=== PATIENT | male | born 1935 | race Caucasian/White ===

== ENCOUNTER 2018-04-29 07:54 | Emergency (ER) | payer MEDICARE, OTHER ==
[~2018-04-29] VITALS: Ht 172.7 cm; Wt 78.3 kg
[~2018-04-29 07:54] MED LIST: BENA10TA74 PO; DEXL60CA3 PO; HYDR-3965 PO
[2018-04-29] MEDS ORDERED: normal saline 1000ML IV soln IVB ONE ×2 (08:05→09:40)
[2018-04-29] MEDS ORDERED: BARIUM SULFATE 340 ML SUSP.RECON***PROCEDURE AREA ONLY**DONT ENTER PO ONE (08:42)
[2018-04-29 08:44] LABS: BASOPHILS % (AUTO) 0.5 % (0-1); EOSINOPHILS # (AUTO) 0.6 X10'3 (0-0.9); EOSINOPHILS % (AUTO) 6.4 % (0-6); HEMATOCRIT 44.4 % (42.0-52.0); HEMOGLOBIN 14.4 g/dl (14.0-17.9); LYMPHOCYTES # (AUTO) 2.1 X10'3 (1.1-4.8); LYMPHOCYTES % (AUTO) 23.6 % (21-51); MEAN CORPUSCULAR HEMOGLOBIN 31.5 PG (27.0-31.0); MEAN CORPUSCULAR HGB CONC 32.5 g/dL (33.0-36.5); MEAN CORPUSCULAR VOLUME 96.8 FL (78-98); MEAN PLATELET VOLUME 7.7 FL (7.4-10.4); MONOCYTES # (AUTO) 0.8 X10'3 (0-0.9); MONOCYTES % (AUTO) 8.3 % (2-12); NEUTROPHILS # (AUTO) 5.6 X10'3 (1.8-7.7); NEUTROPHILS % (AUTO) 61.2 % (42-75); PLATELET COUNT 328 X10'3 (140-440); RED BLOOD COUNT 4.59 X10'6 (4.70-6.10); RED CELL DISTRIBUTION WIDTH 14.3 % (11.5-14.5); WHITE BLOOD COUNT 9.1 X10'3 (4.5-11.0)
[2018-04-29] MEDS ORDERED: SIMETHICONE/SOD BICARB/CIT AC PACKET PO ONE (08:47)
[2018-04-29 08:54] LABS: ALANINE AMINOTRANSFERASE 21 U/L (12-78); ALBUMIN 3.9 G/DL (3.4-5.0); ALBUMIN/GLOBULIN RATIO 1.1 (1.1-1.5); ALKALINE PHOSPHATASE 78 IU/L (46-116); ANION GAP 10 (8-16); ASPARTATE AMINO TRANSFERASE 19 U/L (10-37); BILIRUBIN,TOTAL 0.6 MG/DL (0.1-1.0); BLOOD UREA NITROGEN 21 MG/DL (7-18); BUN/CREATININE RATIO 12.1 (5.4-32.0); CALCIUM 8.9 MG/DL (8.5-10.1); CHLORIDE 106 MMOL/L (99-107); CREATININE 1.74 MG/DL (0.60-1.10); GLUCOSE 103 MG/DL (70-104); POTASSIUM 4.7 MMOL/L (3.5-5.1); SODIUM 140 MMOL/L (135-145); TOTAL CARBON DIOXIDE 24.3 MMOL/L (24-32); TOTAL PROTEIN 7.3 G/DL (6.4-8.2); eGFR 38 ML/MIN
[2018-04-29 10:55] VITALS: BP 217/91
[2018-04-29] MEDS ORDERED: fentaNYL/PF 50MCG/1 ML 2ML syringe ONE (11:02)
[2018-04-29] MEDS ORDERED: LIDOcaine Viscous 15ml cup ONE (11:02)
[2018-04-29] MEDS ORDERED: MIDAZolam 5mg/5ml vial ONE (11:02)
[2018-04-29 11:33] VITALS: BP 161/98
[2018-04-29 11:43] VITALS: BP 183/87
[2018-04-29 11:53] VITALS: BP 185/89
[2018-04-29 13:03] VITALS: BP 171/96
== END 2018-04-29 13:05 | disposition home or self-care (01) ==
LOC: ER 07:55
DX: K22.2 Esophageal obstruction (principal); Z79.899 Other long term (current) drug therapy
CPT/HCPCS: 36415; 43239; 43249; 74220; 80053; 85025; 99152; 99153; 99285; J2250; J3010; J7030; 88305; 88342; A4620; C1726

== ENCOUNTER 2018-10-07 08:10 | Emergency (ER) | payer MEDICARE, OTHER ==
[~2018-10-07] VITALS: Ht 172.7 cm; Wt 77.3 kg
[2018-10-07] MEDS ORDERED: ipratropium/albuterol 3ml nebule NEB ONE (08:20)
[2018-10-07 08:47] LABS: BASOPHILS # (AUTO) 0.1 X10'3 (0-0.2); BASOPHILS % (AUTO) 0.8 % (0-1); EOSINOPHILS # (AUTO) 0.8 X10'3 (0-0.9); EOSINOPHILS % (AUTO) 8.8 % (0-6); HEMATOCRIT 43.9 % (42.0-52.0); HEMOGLOBIN 14.6 g/dl (14.0-17.9); LYMPHOCYTES # (AUTO) 2.3 X10'3 (1.1-4.8); LYMPHOCYTES % (AUTO) 24.2 % (21-51); MEAN CORPUSCULAR HEMOGLOBIN 31.5 PG (27.0-31.0); MEAN CORPUSCULAR HGB CONC 33.3 g/dL (33.0-36.5); MEAN CORPUSCULAR VOLUME 94.6 FL (78-98); MEAN PLATELET VOLUME 7.5 FL (7.4-10.4); MONOCYTES # (AUTO) 0.7 X10'3 (0-0.9); MONOCYTES % (AUTO) 7.3 % (2-12); NEUTROPHILS # (AUTO) 5.5 X10'3 (1.8-7.7); NEUTROPHILS % (AUTO) 58.9 % (42-75); PLATELET COUNT 307 X10'3 (140-440); RED BLOOD COUNT 4.64 X10'6 (4.70-6.10); RED CELL DISTRIBUTION WIDTH 14.5 % (11.5-14.5); WHITE BLOOD COUNT 9.4 X10'3 (4.5-11.0)
[2018-10-07 09:03] LABS: ALANINE AMINOTRANSFERASE 22 U/L (12-78); ALBUMIN 3.7 G/DL (3.4-5.0); ALBUMIN/GLOBULIN RATIO 1.1 (1.1-1.5); ALKALINE PHOSPHATASE 90 IU/L (46-116); ANION GAP 8 (8-16); ASPARTATE AMINO TRANSFERASE 11 U/L (10-37); BILIRUBIN,TOTAL 0.3 MG/DL (0.1-1.0); BLOOD UREA NITROGEN 26 MG/DL (7-18); BUN/CREATININE RATIO 12.7 (5.4-32.0); CALCIUM 9.1 MG/DL (8.5-10.1); CHLORIDE 109 MMOL/L (99-107); CREATININE 2.04 MG/DL (0.60-1.10); GLUCOSE 131 MG/DL (70-104); POTASSIUM 4.3 MMOL/L (3.5-5.1); SODIUM 142 MMOL/L (135-145); TOTAL CARBON DIOXIDE 25.2 MMOL/L (24-32); TOTAL PROTEIN 7.2 G/DL (6.4-8.2); eGFR 31 ML/MIN
[2018-10-07] MEDS ORDERED: PRED10TA23 PO (09:17)
[2018-10-07] MEDS ORDERED: FLUT1DIS4 INH (09:17)
[2018-10-07] MEDS ORDERED: ALBU18HF2 INH (09:17)
[2018-10-07] MEDS ORDERED: AMOX-419 PO (09:17)
[2018-10-07] MEDS ORDERED: methylPREDNISolone sod succ 125mg/2ml vial IM ONE (09:20)
[2018-10-07 10:36] VITALS: BP 172/75
== END 2018-10-07 10:37 | disposition home or self-care (01) ==
LOC: ER 08:11
DX: J98.01 Acute bronchospasm (principal); F17.200 Nicotine dependence, unspecified, uncomplicated; N18.9 Chronic kidney disease, unspecified; Z90.49 Acquired absence of other specified parts of digestive tract; Z95.0 Presence of cardiac pacemaker; Z79.2 Long term (current) use of antibiotics; Z79.899 Other long term (current) drug therapy
CPT/HCPCS: 36415; 71046; 80053; 83880; 84484; 85025; 93005; 94640; 94760; 96372; 99284; J2930

== ENCOUNTER 2018-10-24 08:33 | Emergency (ER) | payer MEDICARE, OTHER ==
[~2018-10-24] VITALS: Ht 172.7 cm; Wt 77.3 kg
[~2018-10-24 08:33] MED LIST changes: +ALBU18HF2 INH; +FLUT1DIS4 INH; +PRED10TA23 PO
--- NOTE | 2018-10-24 09:16 | NUR ---
Spoke to BROOKE Oreilly regarding bladder scan results and pt's inability to urinate. He feels that striat catheter is necessary at this time.
[2018-10-24 09:22] LABS: ALANINE AMINOTRANSFERASE 38 U/L (12-78); ALBUMIN 3.5 G/DL (3.4-5.0); ALBUMIN/GLOBULIN RATIO 1.1 (1.1-1.5); ALKALINE PHOSPHATASE 69 IU/L (46-116); ANION GAP 7 (8-16); ASPARTATE AMINO TRANSFERASE 15 U/L (10-37); BILIRUBIN,TOTAL 0.6 MG/DL (0.1-1.0); BLOOD UREA NITROGEN 28 MG/DL (7-18); BUN/CREATININE RATIO 13.7 (5.4-32.0); CALCIUM 9.2 MG/DL (8.5-10.1); CHLORIDE 106 MMOL/L (99-107); CREATININE 2.05 MG/DL (0.60-1.10); GLUCOSE 94 MG/DL (70-104); POTASSIUM 5.7 MMOL/L (3.5-5.1); SODIUM 139 MMOL/L (135-145); TOTAL CARBON DIOXIDE 26.4 MMOL/L (24-32); TOTAL PROTEIN 6.8 G/DL (6.4-8.2); eGFR 31 ML/MIN
[2018-10-24 09:23] LABS: BASOPHILS # (AUTO) 0.1 X10'3 (0-0.2); BASOPHILS % (AUTO) 0.6 % (0-1); EOSINOPHILS # (AUTO) 0.2 X10'3 (0-0.9); EOSINOPHILS % (AUTO) 1.3 % (0-6); HEMATOCRIT 42.2 % (42.0-52.0); HEMOGLOBIN 13.9 g/dl (14.0-17.9); LYMPHOCYTES # (AUTO) 1.3 X10'3 (1.1-4.8); LYMPHOCYTES % (AUTO) 8.1 % (21-51); MEAN CORPUSCULAR HEMOGLOBIN 31.3 PG (27.0-31.0); MEAN CORPUSCULAR HGB CONC 32.9 g/dL (33.0-36.5); MEAN CORPUSCULAR VOLUME 95.2 FL (78-98); MEAN PLATELET VOLUME 6.9 FL (7.4-10.4); MONOCYTES # (AUTO) 1.4 X10'3 (0-0.9); NEUTROPHILS # (AUTO) 12.6 X10'3 (1.8-7.7); PLATELET COUNT 284 X10'3 (140-440); RED BLOOD COUNT 4.43 X10'6 (4.70-6.10); RED CELL DISTRIBUTION WIDTH 15.5 % (11.5-14.5); WHITE BLOOD COUNT 15.5 X10'3 (4.5-11.0)
[2018-10-24 09:58] LABS: CLARITY,URINE CLEAR (Clear); COLOR,URINE STRAW (Yellow); GLUCOSE, URINE NEGATIVE (Neg); KETONES,URINE NEGATIVE (Neg); LEUKOCYTE ESTERASE ,URINE NEGATIVE (Neg); NITRITES, URINE NEGATIVE (Neg); OCCULT BLOOD,URINE TRACE-INTACT (Neg); PH,URINE 5.5 (4.8-8.0); PROTEIN,URINE NEGATIVE (Neg); UA COLLECTION TYPE STRAIGHT CATH; UROBILINOGEN,URINE 0.2 E.U/dL (0.2-1.0)
[2018-10-24 10:08] LABS: BACTERIA,URINE FEW /HPF (Neg); SQUAMOUS EPITHELIAL CELL,UR NONE SEEN /LPF (FEW); WBC,URINE 0-4 /HPF (0-4)
[2018-10-24] MEDS ORDERED: FLO0.4C PO (10:35)
[2018-10-24 10:42] VITALS: BP 157/83
== END 2018-10-24 10:44 | disposition home or self-care (01) ==
LOC: ER 08:33
DX: R33.9 Retention of urine, unspecified (principal); N18.9 Chronic kidney disease, unspecified; Z90.49 Acquired absence of other specified parts of digestive tract; Z98.890 Other specified postprocedural states; Z79.899 Other long term (current) drug therapy
CPT/HCPCS: 36415; 51701; 80053; 81001; 85025; 99284; P9612

== ENCOUNTER 2018-10-29 17:16 | Inpatient (IN) | payer MEDICARE, OTHER ==
[~2018-10-29] VITALS: Ht 172.7 cm; Wt 78.2 kg
[~2018-10-29 17:16] MED LIST changes: +FLO0.4C PO
[2018-10-29 18:06] LABS: BASOPHILS # (AUTO) 0.1 X10'3 (0-0.2); BASOPHILS % (AUTO) 0.4 % (0-1); EOSINOPHILS # (AUTO) 0.1 X10'3 (0-0.9); EOSINOPHILS % (AUTO) 0.3 % (0-6); HEMATOCRIT 39.1 % (42.0-52.0); HEMOGLOBIN 12.8 g/dl (14.0-17.9); LYMPHOCYTES # (AUTO) 0.7 X10'3 (1.1-4.8); MEAN CORPUSCULAR HEMOGLOBIN 31.3 PG (27.0-31.0); MEAN CORPUSCULAR HGB CONC 32.7 g/dL (33.0-36.5); MEAN CORPUSCULAR VOLUME 95.5 FL (78-98); MEAN PLATELET VOLUME 7.3 FL (7.4-10.4); MONOCYTES % (AUTO) 5.7 % (2-12); NEUTROPHILS # (AUTO) 15.8 X10'3 (1.8-7.7); NEUTROPHILS % (AUTO) 89.6 % (42-75); PLATELET COUNT 234 X10'3 (140-440); WHITE BLOOD COUNT 17.7 X10'3 (4.5-11.0)
[2018-10-29 18:15] LABS: PARTIAL THROMBOPLASTIN TIME 42 SECONDS (22-32)
[2018-10-29 18:36] LABS: ALANINE AMINOTRANSFERASE 38 U/L (12-78); ALBUMIN/GLOBULIN RATIO 0.8 (1.1-1.5); ALKALINE PHOSPHATASE 71 IU/L (46-116); ANION GAP 7 (8-16); ASPARTATE AMINO TRANSFERASE 24 U/L (10-37); BILIRUBIN,TOTAL 0.7 MG/DL (0.1-1.0); BLOOD UREA NITROGEN 26 MG/DL (7-18); BUN/CREATININE RATIO 10.5 (5.4-32.0); CALCIUM 8.5 MG/DL (8.5-10.1); CHLORIDE 104 MMOL/L (99-107); CREATININE 2.47 MG/DL (0.60-1.10); GLUCOSE 157 MG/DL (70-104); POTASSIUM 5.1 MMOL/L (3.5-5.1); SODIUM 135 MMOL/L (135-145); TOTAL CARBON DIOXIDE 23.9 MMOL/L (24-32); TOTAL PROTEIN 6.9 G/DL (6.4-8.2); eGFR 25 ML/MIN
[2018-10-29] MEDS ORDERED: normal saline 1000ML IV soln IV ONE (18:40)
[2018-10-29] MEDS ORDERED: azithromycin/NS 500mg/250ml 250 ML IV ONE (18:55)
[2018-10-29] MEDS ORDERED: CefTRIAXone 2gm/D5W 50ml 50 ML IV ONE (18:55)
[2018-10-29 18:56] LABS: UA COLLECTION TYPE VOIDED
[2018-10-29 18:57] LABS: CLARITY,URINE CLEAR (Clear); COLOR,URINE YELLOW (Yellow); GLUCOSE, URINE NEGATIVE (Neg); KETONES,URINE NEGATIVE (Neg); LEUKOCYTE ESTERASE ,URINE SMALL (Neg); NITRITES, URINE NEGATIVE (Neg); OCCULT BLOOD,URINE SMALL (Neg); PROTEIN,URINE TRACE mg/dl (Neg)
[2018-10-29 19:06] LABS: BACTERIA,URINE NONE SEEN /HPF (Neg); MUCUS STRANDS NONE SEEN /LPF (Neg); SQUAMOUS EPITHELIAL CELL,UR FEW /LPF (FEW); WBC,URINE 20-30 /HPF (0-4)
[2018-10-29] MEDS ORDERED: BENA20TA10 PO (20:31)
[2018-10-29] MEDS ORDERED: OMEP40CA13 PO (20:31)
[2018-10-29] MEDS ORDERED: RIVA15TA PO (20:31)
--- NOTE | 2018-10-29 21:09 | NUR ---
DR ARELLANO AT BEDSIDE DOING ASSESSMENT ,PT FAMILY AT BEDSIDE.
[2018-10-29] MEDS ORDERED: ondansetron/PF 4mg/2ml inj IV PRN (21:25)
[2018-10-29] MEDS ORDERED: magnesium hydroxide 30ml (MOM) UD suspension PO PRN (21:25)
[2018-10-29] MEDS ORDERED: mag hydrox/Alum hydrox/simeth 30ml oral suspension PO PRN (21:25)
[2018-10-29] MEDS ORDERED: acetaminophen 325mg tablet PO PRN (21:25)
--- NOTE | 2018-10-29 21:32 | NUR ---
GRANDDAUGHTER CONTACT NUMBER BEATRIZ [phone], DAUGHTER SHEA [phone], DAUGHTER DEEPALI [phone]
--- NOTE | 2018-10-29 21:32 | NUR ---
PT REQUESTED FOR FOOD.SNACKS FROM ER GIVEN TO THE PT.DENIES ANY CONCERN FAMILY AT BEDSIDE.
[2018-10-29] MEDS ORDERED: albuterol 2.5 MG/3 ML nebule NEB PRN (21:45)
[2018-10-29 22:35] VITALS: BP 178/63
--- NOTE | 2018-10-29 22:35 | NUR ---
PATIENT ADMITTED TO ROOM 358A FROM ER FOR UTI, URINARY RETENTION, COPD, MYOCARDIAL INJURY. PLACED COMFORTABLE IN BED. VITAL SIGNS TAKEN AND RECORDED.
[2018-10-29] MEDS: normal saline 1000ml 1,000 ML IV SCH (22:48)
[2018-10-29] MEDS ORDERED: lisinopril 5mg tablet PO ONE (23:00)
[2018-10-30] VITALS: BP 171/61
[2018-10-30 01:00] VITALS: BP 158/66
--- NOTE | 2018-10-30 06:07 | NUR ---
Problems reprioritized. Patient report given, questions answered & plan of care reviewed with CARL RN.
[2018-10-30 06:12] LABS: BASOPHILS % (AUTO) 0.2 % (0-1); EOSINOPHILS # (AUTO) 0.1 X10'3 (0-0.9); EOSINOPHILS % (AUTO) 0.6 % (0-6); HEMATOCRIT 32.9 % (42.0-52.0); LYMPHOCYTES # (AUTO) 0.4 X10'3 (1.1-4.8); LYMPHOCYTES % (AUTO) 3.2 % (21-51); MEAN CORPUSCULAR HEMOGLOBIN 31.9 PG (27.0-31.0); MEAN CORPUSCULAR HGB CONC 33.4 g/dL (33.0-36.5); MEAN CORPUSCULAR VOLUME 95.4 FL (78-98); MEAN PLATELET VOLUME 7.5 FL (7.4-10.4); MONOCYTES # (AUTO) 0.9 X10'3 (0-0.9); MONOCYTES % (AUTO) 6.5 % (2-12); NEUTROPHILS % (AUTO) 89.5 % (42-75); PLATELET COUNT 193 X10'3 (140-440); RED BLOOD COUNT 3.45 X10'6 (4.70-6.10); RED CELL DISTRIBUTION WIDTH 15.2 % (11.5-14.5); WHITE BLOOD COUNT 13.4 X10'3 (4.5-11.0)
--- NOTE | 2018-10-30 06:15 | NUR ---
Patient in room [facility]. I have received report from PAPI TURPIN RN and had the opportunity to ask questions and assume patient care.
[2018-10-30 06:20] LABS: ALANINE AMINOTRANSFERASE 35 U/L (12-78); ALBUMIN 2.4 G/DL (3.4-5.0); ALBUMIN/GLOBULIN RATIO 0.8 (1.1-1.5); ALKALINE PHOSPHATASE 61 IU/L (46-116); ANION GAP 9 (8-16); ASPARTATE AMINO TRANSFERASE 30 U/L (10-37); BILIRUBIN,TOTAL 0.8 MG/DL (0.1-1.0); BLOOD UREA NITROGEN 22 MG/DL (7-18); BUN/CREATININE RATIO 10.8 (5.4-32.0); CHLORIDE 110 MMOL/L (99-107); CREATININE 2.03 MG/DL (0.60-1.10); GLUCOSE 106 MG/DL (70-104); POTASSIUM 4.7 MMOL/L (3.5-5.1); SODIUM 139 MMOL/L (135-145); TOTAL CARBON DIOXIDE 20.4 MMOL/L (24-32); TOTAL PROTEIN 5.6 G/DL (6.4-8.2); eGFR 31 ML/MIN
[2018-10-30 08:00] VITALS: BP 111/38
[2018-10-30] MEDS ORDERED: HYDROcodone/acetaminophen 5mg/325mg tablet PO PRN (08:00)
[2018-10-30] MEDS: albuterol 2.5 MG/3 ML nebule NEB SCH ×4 (08:27→19:43)
[2018-10-30] MEDS: budesonide 0.5mg/2ml UD nebule IH SCH ×2 (08:28→19:43)
[2018-10-30] MEDS: tamsulosin 0.4mg capsule PO SCH (08:53)
[2018-10-30] MEDS: lisinopril 20mg tablet PO SCH (08:54)
[2018-10-30] MEDS: pantoprazole 40mg Tablet.DR PO SCH (08:54)
[2018-10-30] MEDS: rivaroxaban 15mg tablet PO SCH (08:54)
[2018-10-30] MEDS ORDERED: magnesium 4gm in 100ml NS 100 ML IV PRN (09:45)
[2018-10-30] MEDS ORDERED: potassium Cl 20 mEq SR tablet PO PRN ×2 (09:45)
[2018-10-30] MEDS ORDERED: potassium CL 10mEq/100ml bag 100 ML IV PRN (09:45)
[2018-10-30] MEDS ORDERED: magnesium Cl slow-release 64mg tablet PO PRN (09:45)
[2018-10-30] MEDS: CefTRIAXone/D5W-Rocephin 1gm 50 ML IV SCH (10:08)
[2018-10-30 12:00] VITALS: BP 122/53
--- NOTE | 2018-10-30 18:39 | NUR ---
Received report from Gabi NICOLE pt is sitting on the side of bed eating dinner in no apparent distress
[2018-10-30 19:00] VITALS: BP 134/52
[2018-10-30] MEDS ORDERED: temazepam 15mg capsule PO PRN (19:40)
[2018-10-30] MEDS ORDERED: zolpidem 5mg tablet PO PRN (20:10)
[2018-10-30] MEDS: normal saline 1000ml 1,000 ML IV SCH (22:21)
[2018-10-31] VITALS: BP 122/43
[2018-10-31 05:40] LABS: ALANINE AMINOTRANSFERASE 30 U/L (12-78); ALBUMIN 2.2 G/DL (3.4-5.0); ALBUMIN/GLOBULIN RATIO 0.7 (1.1-1.5); ALKALINE PHOSPHATASE 59 IU/L (46-116); ANION GAP 10 (8-16); ASPARTATE AMINO TRANSFERASE 19 U/L (10-37); BASOPHILS % (AUTO) 0.3 % (0-1); BILIRUBIN,TOTAL 0.3 MG/DL (0.1-1.0); BLOOD UREA NITROGEN 23 MG/DL (7-18); BUN/CREATININE RATIO 10.6 (5.4-32.0); CALCIUM 7.8 MG/DL (8.5-10.1); CHLORIDE 109 MMOL/L (99-107); CREATININE 2.17 MG/DL (0.60-1.10); EOSINOPHILS # (AUTO) 0.3 X10'3 (0-0.9); EOSINOPHILS % (AUTO) 2.2 % (0-6); GLUCOSE 113 MG/DL (70-104); HEMOGLOBIN 10.1 g/dl (14.0-17.9); LYMPHOCYTES # (AUTO) 1.1 X10'3 (1.1-4.8); LYMPHOCYTES % (AUTO) 9.4 % (21-51); MAGNESIUM 1.5 MG/DL (1.5-2.4); MEAN CORPUSCULAR HEMOGLOBIN 31.6 PG (27.0-31.0); MEAN CORPUSCULAR HGB CONC 32.7 g/dL (33.0-36.5); MEAN CORPUSCULAR VOLUME 96.6 FL (78-98); MEAN PLATELET VOLUME 7.6 FL (7.4-10.4); MONOCYTES # (AUTO) 0.9 X10'3 (0-0.9); MONOCYTES % (AUTO) 7.4 % (2-12); NEUTROPHILS # (AUTO) 9.4 X10'3 (1.8-7.7); NEUTROPHILS % (AUTO) 80.7 % (42-75); PHOSPHORUS 3.2 MG/DL (2.3-4.5); PLATELET COUNT 165 X10'3 (140-440); POTASSIUM 4.5 MMOL/L (3.5-5.1); RED BLOOD COUNT 3.21 X10'6 (4.70-6.10); RED CELL DISTRIBUTION WIDTH 15.1 % (11.5-14.5); SODIUM 140 MMOL/L (135-145); TOTAL CARBON DIOXIDE 21.5 MMOL/L (24-32); TOTAL PROTEIN 5.5 G/DL (6.4-8.2); WHITE BLOOD COUNT 11.7 X10'3 (4.5-11.0); eGFR 29 ML/MIN
--- NOTE | 2018-10-31 06:25 | NUR ---
Gave report to Kalpana NICOLE pt is resting on RA in no apparent distress, call light and items of freq use within reach.
--- NOTE | 2018-10-31 06:30 | NUR ---
Patient in room [facility] 346. I have received report from COREY Finnegan and had the opportunity to ask questions and assume patient care.
[2018-10-31 08:00] VITALS: BP 157/64
[2018-10-31] MEDS: budesonide 0.5mg/2ml UD nebule IH SCH (08:37)
[2018-10-31] MEDS: albuterol 2.5 MG/3 ML nebule NEB SCH ×3 (08:38→14:28)
[2018-10-31] MEDS: rivaroxaban 15mg tablet PO SCH (08:40)
[2018-10-31] MEDS: tamsulosin 0.4mg capsule PO SCH (08:40)
[2018-10-31] MEDS: pantoprazole 40mg Tablet.DR PO SCH (08:40)
[2018-10-31] MEDS: CefTRIAXone/D5W-Rocephin 1gm 50 ML IV SCH (08:40)
[2018-10-31] MEDS: lisinopril 20mg tablet PO SCH (08:40)
[2018-10-31 12:00] VITALS: BP 163/60
[2018-10-31] MEDS ORDERED: CEFD300C3 PO (13:20)
[2018-10-31] MEDS ORDERED: CARV-49 PO (14:14)
[2018-10-31] MEDS ORDERED: carVEDilol 12.5mg tablet PO ONE (14:15)
[2018-10-31] MEDS ORDERED: lactobacillus rhamnosus 10,000 MMU CELLS/CAPSULE PO SCH (20:00)
== END 2018-10-31 15:00 | disposition home health service (06) | DRG 871 ==
LOC: ER 17:16 → SUR 3N 21:59 → CMPBEDREQ 22:05 → SUR 3N 10-30 14:06
PROVIDERS: ADMIT Internal Medicine; ATTEND Family Medicine
DX: A41.9 Sepsis, unspecified organism (principal); I21.A1 Myocardial infarction type 2; N39.0 Urinary tract infection, site not specified; I48.91 Unspecified atrial fibrillation; N18.3 Chronic kidney disease, stage 3 (moderate); F17.200 Nicotine dependence, unspecified, uncomplicated; G47.00 Insomnia, unspecified; J44.9 Chronic obstructive pulmonary disease, unspecified; R33.8 Other retention of urine; N40.1 Benign prostatic hyperplasia with lower urinary tract symptoms; Z79.01 Long term (current) use of anticoagulants; Z95.0 Presence of cardiac pacemaker; Z90.49 Acquired absence of other specified parts of digestive tract; Z79.899 Other long term (current) drug therapy
CPT/HCPCS: 36415; 71045; 80053; 81001; 83605; 83735; 83880; 84100; 84145; 84484; 85025; 85610; 85730; 87040; 87081; 87088; 93005; 94640; 94760; 96365; 99285; G0378; J0456; J0696; J7030; J7626

== ENCOUNTER 2018-12-18 14:27 | Outpatient (CLI) | payer MEDICARE, OTHER ==
[~2018-12-18] VITALS: Ht 172.7 cm; Wt 80.7 kg
[~2018-12-18 14:27] MED LIST changes: -BENA10TA74 PO; +BENA20TA10 PO; +CARV-49 PO; -DEXL60CA3 PO; -FLO0.4C PO; +OMEP40CA13 PO; -PRED10TA23 PO; +RIVA15TA PO
[2018-12-18 14:45] LABS: TOTAL HEMOGLOBIN 12.8 G/dl (14.0-17.9)
[2018-12-18] MEDS ORDERED: albuterol 2.5 MG/3 ML nebule NEB ONE (15:05)
== END 2018-12-18 23:59 | disposition home or self-care (01) ==
LOC: RT 14:27
PROVIDERS: ATTEND Registered Nurse
DX: J44.9 Chronic obstructive pulmonary disease, unspecified (principal); I10 Essential (primary) hypertension; Z87.891 Personal history of nicotine dependence; Z72.89 Other problems related to lifestyle; Z95.0 Presence of cardiac pacemaker
CPT/HCPCS: 85018; 94060; 94727; 94729; 94760

== ENCOUNTER 2019-09-15 07:31 | Emergency (ER) | payer MEDICARE, OTHER ==
[~2019-09-15] VITALS: Ht 172.7 cm; Wt 75.2 kg
[2019-09-15] MEDS ORDERED: proparacaine 0.5% ophthalmic drops 15ml EACHEYE ONE (07:50)
[2019-09-15] MEDS ORDERED: PRED20TA PO (08:47)
[2019-09-15] MEDS ORDERED: HYDR-4384 PO (08:47)
[2019-09-15] MEDS ORDERED: ACYC-202 PO (08:47)
[2019-09-15 08:59] VITALS: BP 148/70
== END 2019-09-15 09:02 | disposition home or self-care (01) ==
LOC: ER 07:32
DX: B02.9 Zoster without complications (principal); N18.9 Chronic kidney disease, unspecified; M54.9 Dorsalgia, unspecified; R22.0 Localized swelling, mass and lump, head; Z90.49 Acquired absence of other specified parts of digestive tract; Z95.0 Presence of cardiac pacemaker; Z79.01 Long term (current) use of anticoagulants; Z79.899 Other long term (current) drug therapy
CPT/HCPCS: 99283

== ENCOUNTER 2019-11-26 10:41 | Emergency (ER) | payer MEDICARE, OTHER ==
[~2019-11-26] VITALS: Ht 172.7 cm; Wt 75.3 kg
[~2019-11-26 10:41] MED LIST changes: +ACYC-202 PO; +BUDE10.22 INH; -CARV-49 PO; +FLO0.4C PO; -FLUT1DIS4 INH; -OMEP40CA13 PO; +PANT-47 PO; +PREG50CA PO; -RIVA15TA PO
[2019-11-26 11:15] LABS: BASOPHILS # (AUTO) 0.1 X10'3 (0-0.2); BASOPHILS % (AUTO) 0.5 % (0-1); EOSINOPHILS # (AUTO) 0.1 X10'3 (0-0.9); EOSINOPHILS % (AUTO) 0.6 % (0-6); HEMATOCRIT 38.2 % (42.0-52.0); HEMOGLOBIN 12.3 g/dl (14.0-17.9); LYMPHOCYTES # (AUTO) 1.7 X10'3 (1.1-4.8); MEAN CORPUSCULAR HEMOGLOBIN 30.4 PG (27.0-31.0); MEAN CORPUSCULAR HGB CONC 32.3 g/dL (33.0-36.5); MEAN CORPUSCULAR VOLUME 93.9 FL (78-98); MEAN PLATELET VOLUME 7.6 FL (7.4-10.4); MONOCYTES # (AUTO) 1.1 X10'3 (0-0.9); MONOCYTES % (AUTO) 7.8 % (2-12); NEUTROPHILS % (AUTO) 79.1 % (42-75); PLATELET COUNT 393 X10'3 (140-440); RED BLOOD COUNT 4.07 X10'6 (4.70-6.10); RED CELL DISTRIBUTION WIDTH 18.1 % (11.5-14.5); WHITE BLOOD COUNT 13.9 X10'3 (4.5-11.0)
[2019-11-26 11:33] LABS: ALANINE AMINOTRANSFERASE 16 U/L (12-78); ALBUMIN 3.6 G/DL (3.4-5.0); ALBUMIN/GLOBULIN RATIO 1.1 (1.1-1.5); ALKALINE PHOSPHATASE 62 IU/L (46-116); ANION GAP 10 (8-16); ASPARTATE AMINO TRANSFERASE 13 U/L (10-37); BILIRUBIN,TOTAL 0.4 MG/DL (0.1-1.0); BLOOD UREA NITROGEN 28 MG/DL (7-18); BUN/CREATININE RATIO 13.1 (5.4-32.0); CALCIUM 9.7 MG/DL (8.5-10.1); CHLORIDE 108 MMOL/L (99-107); CREATININE 2.14 MG/DL (0.60-1.10); GLUCOSE 142 MG/DL (70-104); POTASSIUM 4.7 MMOL/L (3.5-5.1); SODIUM 140 MMOL/L (135-145); TOTAL CARBON DIOXIDE 22.2 MMOL/L (24-32); TOTAL PROTEIN 6.9 G/DL (6.4-8.2); eGFR 30 ML/MIN
[2019-11-26 12:41] LABS: MAGNESIUM 1.7 MG/DL (1.5-2.4)
[2019-11-26] MEDS ORDERED: ondansetron/PF 4mg/2ml inj IV ONE (13:25)
[2019-11-26] MEDS ORDERED: normal saline 1000ML IV soln IVB ONE (13:25)
--- NOTE | 2019-11-26 14:29 | NUR ---
I CALLED THE LAB, THEY JUST RECEIVED THE URINE AND WILL BE PROCESSING RIGHT NOW.
[2019-11-26 14:32] LABS: CLARITY,URINE CLEAR (Clear); COLOR,URINE YELLOW (Yellow); GLUCOSE, URINE NEGATIVE (Neg); KETONES,URINE NEGATIVE (Neg); LEUKOCYTE ESTERASE ,URINE NEGATIVE (Neg); NITRITES, URINE NEGATIVE (Neg); OCCULT BLOOD,URINE TRACE-INTACT (Neg); PH,URINE 5.5 (4.8-8.0); PROTEIN,URINE NEGATIVE (Neg); UROBILINOGEN,URINE 0.2 E.U/dL (0.2-1.0)
[2019-11-26 14:35] LABS: UA COLLECTION TYPE NON-SPECIFIED
[2019-11-26 14:39] LABS: BACTERIA,URINE NONE SEEN /HPF (Neg); MUCUS STRANDS NONE SEEN /LPF (Neg); RBC,URINE NONE SEEN /HPF (0-2); SQUAMOUS EPITHELIAL CELL,UR FEW /LPF (FEW); WBC,URINE 0-4 /HPF (0-4)
[2019-11-26 15:14] VITALS: BP 153/68
== END 2019-11-26 15:12 | disposition home or self-care (01) ==
LOC: ER 10:42
DX: R53.1 Weakness (principal); R06.02 Shortness of breath; R11.0 Nausea; R19.7 Diarrhea, unspecified; N18.9 Chronic kidney disease, unspecified; Z90.49 Acquired absence of other specified parts of digestive tract; Z95.0 Presence of cardiac pacemaker; Z79.2 Long term (current) use of antibiotics; Z79.899 Other long term (current) drug therapy
CPT/HCPCS: 36415; 71045; 80053; 81001; 83735; 83880; 84484; 85025; 93005; 96374; 99285; J2405; J7030

== ENCOUNTER 2020-03-22 08:24 | Emergency (ER) | payer MEDICARE, OTHER ==
[~2020-03-22] VITALS: Ht 172.7 cm; Wt 79.5 kg
[2020-03-22] MEDS ORDERED: ondansetron 4mg rapidly disintigrating tab PO ONE (08:50)
[2020-03-22 09:48] LABS: BASOPHILS % (AUTO) 0.3 % (0-1); EOSINOPHILS % (AUTO) 0.2 % (0-6); HEMATOCRIT 35.1 % (42.0-52.0); HEMOGLOBIN 11.6 g/dl (14.0-17.9); LYMPHOCYTES # (AUTO) 0.9 X10'3 (1.1-4.8); LYMPHOCYTES % (AUTO) 4.9 % (21-51); MEAN CORPUSCULAR HGB CONC 33.1 g/dL (33.0-36.5); MEAN CORPUSCULAR VOLUME 90.4 FL (78-98); MEAN PLATELET VOLUME 7.6 FL (7.4-10.4); MONOCYTES # (AUTO) 1.3 X10'3 (0-0.9); MONOCYTES % (AUTO) 7.3 % (2-12); NEUTROPHILS # (AUTO) 15.6 X10'3 (1.8-7.7); NEUTROPHILS % (AUTO) 87.3 % (42-75); PLATELET COUNT 298 X10'3 (140-440); RED BLOOD COUNT 3.89 X10'6 (4.70-6.10); RED CELL DISTRIBUTION WIDTH 15.5 % (11.5-14.5); WHITE BLOOD COUNT 17.8 X10'3 (4.5-11.0)
[2020-03-22 09:59] LABS: ALANINE AMINOTRANSFERASE 18 U/L (12-78); ALBUMIN 3.4 G/DL (3.4-5.0); ALBUMIN/GLOBULIN RATIO 1.1 (1.1-1.5); ALKALINE PHOSPHATASE 94 IU/L (46-116); ASPARTATE AMINO TRANSFERASE 15 U/L (10-37); BILIRUBIN,TOTAL 0.6 MG/DL (0.1-1.0); BLOOD UREA NITROGEN 27 MG/DL (7-18); BUN/CREATININE RATIO 13.6 (5.4-32.0); CALCIUM 8.9 MG/DL (8.5-10.1); CHLORIDE 106 MMOL/L (99-107); CREATININE 1.98 MG/DL (0.60-1.10); GLUCOSE 140 MG/DL (70-104); MAGNESIUM 1.6 MG/DL (1.5-2.4); POTASSIUM 5.2 MMOL/L (3.5-5.1); TOTAL PROTEIN 6.4 G/DL (6.4-8.2); eGFR 32 ML/MIN
[2020-03-22 10:08] LABS: ANION GAP 9 (8-16); SODIUM 138 MMOL/L (135-145)
[2020-03-22] MEDS ORDERED: CefTRIAXone/D5W-Rocephin 1gm 50 ML IV ONE (10:35)
[2020-03-22] MEDS ORDERED: azithromycin/NS 500mg/250ml 250 ML IV ONE (10:35)
[2020-03-22] MEDS ORDERED: normal saline 1000ml 1,000 ML IV ONE (10:35)
[2020-03-22 11:07] LABS: C-REACTIVE PROTEIN 1.43 MG/DL (0.0-0.5)
--- NOTE | 2020-03-22 11:22 | NUR ---
got a hold of [employer] to have pacemaker read they stated that they do not have anyone in the area right now but might be able to have a competater ageancy to read if need talked to and ok'ed it not being read right now informed katyh
--- NOTE | 2020-03-22 11:57 | NUR ---
family key / ride home number [phone]
[2020-03-22] MEDS ORDERED: AMOX-422 PO (12:33)
[2020-03-22] MEDS ORDERED: AZIT-63 PO (12:33)
[2020-03-22 13:06] VITALS: BP 147/67
[2020-03-22 13:15] LABS: CLARITY,URINE SLIGHTLY CLOUDY (Clear); COLOR,URINE STRAW (Yellow); GLUCOSE, URINE NEGATIVE (Neg); KETONES,URINE NEGATIVE (Neg); LEUKOCYTE ESTERASE ,URINE TRACE (Neg); NITRITES, URINE NEGATIVE (Neg); OCCULT BLOOD,URINE LARGE (Neg); PROTEIN,URINE NEGATIVE (Neg); UROBILINOGEN,URINE 0.2 E.U/dL (0.2-1.0)
[2020-03-22 13:21] LABS: UA COLLECTION TYPE VOIDED
[2020-03-22 13:23] LABS: BACTERIA,URINE NONE SEEN /HPF (Neg); MUCUS STRANDS NONE SEEN /LPF (Neg); RBC,URINE 50-100 /HPF (0-2); SQUAMOUS EPITHELIAL CELL,UR FEW /LPF (FEW); WBC,URINE 0-4 /HPF (0-4)
== END 2020-03-22 13:02 | disposition home or self-care (01) ==
LOC: ER 08:24
DX: J18.9 Pneumonia, unspecified organism (principal); N18.9 Chronic kidney disease, unspecified; R30.0 Dysuria; Z20.828 Contact with and (suspected) exposure to other viral communicable diseases; Z90.49 Acquired absence of other specified parts of digestive tract; Z95.0 Presence of cardiac pacemaker; Z79.899 Other long term (current) drug therapy
CPT/HCPCS: 36415; 71045; 80053; 81001; 83605; 83735; 84145; 84484; 85025; 86140; 87040; 87088; 87635; 93005; 96365; 96366; 96368; 99285; C9803; J0456; J0696; J7030

== ENCOUNTER 2023-05-07 08:50 | Emergency (ER) | payer OTHER, MEDICARE ==
[~2023-05-07] VITALS: Ht 172.7 cm; Wt 84.5 kg
[~2023-05-07 08:50] MED LIST changes: +ACYC-129 PO; -ACYC-202 PO; -BENA20TA10 PO; +BENA20TA83 PO; +RIVA10TA PO
[2023-05-07 08:54] VITALS: TEMP 97.6
[2023-05-07 09:33] LABS: BASOPHILS % (AUTO) 0.4 % (0-1); EOSINOPHILS # (AUTO) 0.1 X10'3 (0-0.9); EOSINOPHILS % (AUTO) 1.1 % (0-6); HEMATOCRIT 35.2 % (42.0-52.0); HEMOGLOBIN 11.4 g/dl (14.0-17.9); LYMPHOCYTES # (AUTO) 1.1 X10'3 (1.1-4.8); LYMPHOCYTES % (AUTO) 8.1 % (21-51); MEAN CORPUSCULAR HEMOGLOBIN 30.9 PG (27.0-31.0); MEAN CORPUSCULAR HGB CONC 32.3 g/dL (33.0-36.5); MEAN CORPUSCULAR VOLUME 95.7 FL (78-98); MEAN PLATELET VOLUME 7.8 FL (7.4-10.4); MONOCYTES # (AUTO) 1.2 X10'3 (0-0.9); MONOCYTES % (AUTO) 8.8 % (2-12); NEUTROPHILS # (AUTO) 10.8 X10'3 (1.8-7.7); NEUTROPHILS % (AUTO) 81.6 % (42-75); PLATELET COUNT 379 X10'3 (140-440); RED BLOOD COUNT 3.68 X10'6 (4.70-6.10); RED CELL DISTRIBUTION WIDTH 14.9 % (11.5-14.5); WHITE BLOOD COUNT 13.2 X10'3 (4.5-11.0)
[2023-05-07 09:59] LABS: ALBUMIN 3.1 G/DL (3.4-5.0); ANION GAP 13 (8-16); BLOOD UREA NITROGEN 41 MG/DL (7-18); BUN/CREATININE RATIO 19.5 (10.0-20.0); CALCIUM 8.5 MG/DL (8.5-10.1); CHLORIDE 108 MMOL/L (99-107); GLUCOSE 124 MG/DL (70-104); PRO BRAIN NATRIURETIC PEPTIDE 16863 PG/ML (0-450); SODIUM 142 MMOL/L (135-145); TOTAL CARBON DIOXIDE 20.7 MMOL/L (24-32); eCRCL 23 ML/MIN; eGFR 30 ML/MIN
[2023-05-07] MEDS ORDERED: FURO40TA4 PO (11:25)
[2023-05-07] MEDS ORDERED: POTA-192 PO (11:25)
[2023-05-07] MEDS: furosemide 10 MG/1 ML 10ml inj IV ONE (11:44)
[2023-05-07 12:14] VITALS: BP 168/85; PULSE 70; RESP 20; O2SAT 98
== END 2023-05-07 12:14 | disposition home or self-care (01) ==
LOC: ER 08:50
DX: I12.9 Hypertensive chronic kidney disease with stage 1 through stage 4 chronic kidney disease, or unspecified chronic kidney disease (principal); I50.9 Heart failure, unspecified; J44.9 Chronic obstructive pulmonary disease, unspecified; N18.9 Chronic kidney disease, unspecified; Z79.899 Other long term (current) drug therapy; Z90.49 Acquired absence of other specified parts of digestive tract; Z87.891 Personal history of nicotine dependence
CPT/HCPCS: 36415; 71045; 80048; 83880; 84484; 85025; 93005; 96374; 99285; J1940